=== PATIENT | female | born 1975 | race Caucasian/White ===

== ENCOUNTER → 2016-12-22 | Outpatient (CLI) | payer BC ==
[~2016-12-22] MED LIST: IBUP600T44 PO; PRENTAB26
== END | disposition home or self-care (01) ==
LOC: C.LABSPEC 17:43
PROVIDERS: ATTEND Nurse Practitioner Family
DX: J02.9 Acute pharyngitis, unspecified (principal)

== ENCOUNTER → 2017-02-03 | Outpatient (CLI) | payer BC ==
[2017-02-03 13:17] LABS: URINE APPEARANCE CLOUDY (CLEAR); URINE BILIRUBIN NEG (NEG); URINE COLOR ORANGE; URINE NITRITE POS (NEG); URINE PH 5.5 (4.5-7.5); URINE SPECIFIC GRAVITY 1.018 (1.000-1.030); UROBILINOGEN NEG (NEG)
[2017-02-03 13:19] LABS: MANUAL MICROSCOPIC REQUIRED? NO; REVIEW REQ? NO
== END | disposition home or self-care (01) ==
LOC: C.LABSPEC 11:05
PROVIDERS: ATTEND Internal Medicine
DX: R39.9 Unspecified symptoms and signs involving the genitourinary system (principal)

== ENCOUNTER → 2017-09-19 | Outpatient (CLI) | payer BC ==
--- NOTE | 2017-09-19 15:20 | MAMMOGRAPHY REPORT ---
BILATERAL DIGITAL SCREENING MAMMOGRAM TOMOSYNTHESIS WITH CAD: 09/19/2017 TECHNIQUE: Breast tomosynthesis in addition to standard 2D mammography was performed. Current study was also evaluated with a Computer Aided Detection (CAD) system. COMPARISON: Comparison is made to exams dated: 09/18/2016 ultrasound, 09/18/2016 mammogram, 5 mammogram, 11/25/2014 mammogram, 05/19/2014 mammogram, and 05/28/2014 mammogram - [facility]. BREAST COMPOSITION: The tissue of both breasts is heterogeneously dense, which may obscure small mas ses. FINDINGS: No suspicious masses, calcifications, or areas of architectural distortion are noted in ei ther breast. There has been no significant interval change compared to prior exams. Scattered bilater al benign-appearing calcifications are not significantly changed. Circumscribed benign-appearing mas ses bilaterally are stable compared to prior exams. IMPRESSION: ACR BI-RADS CATEGORY 2: BENIGN There is no mammographic evidence of malignancy. A 1 year screening mammogram is recommended. The pa tient will receive written notification of the results. Approximately 10% of breast cancers are not detected with mammography. A negative mammographic report should not delay biopsy if a clinically suggestive mass is present. Genny Perez M.D. ah/:09/19/2017 07:55:39 Housing Assistant Property Manager: Katie TORRES(Doroteo)(M), [facility] letter sent: Normal 1/2 BI-RADS Code: ACR BI-RADS Category 2: Benign
== END | disposition home or self-care (01) ==
LOC: C.MAMM 07:37
PROVIDERS: ATTEND Family Medicine
DX: Z12.31 Encounter for screening mammogram for malignant neoplasm of breast (principal)

== ENCOUNTER → 2017-10-05 | Outpatient (CLI) | payer BC ==
[2017-10-05 11:59] LABS: BASO % 0.5 %; BASO ABS # 0.03 K/uL (0-0.2); COMPLETE YES; EOS % 1.7 %; HEMATOCRIT 41.6 % (37-47); IG% 0.3 %; LYMPH % 23.4 %; LYMPH ABS # 1.36 K/uL (1.2-3.4); MEAN CELL VOLUME 93.5 fL (80-100); MEAN CORPUSCULAR HEMOGLOBIN 30.6 pg (25-34); MEAN CORPUSCULAR HGB CONC 32.7 g/dl (32-36); MEAN PLATELET VOLUME 11.1 fL (7.4-10.4); MONO % 9.3 %; NEUT % 64.8 %; PLATELET COUNT 186 K/uL (130-400); RED BLOOD COUNT 4.45 M/uL (4.2-5.4); WHITE BLOOD COUNT 5.81 K/uL (4.8-10.8)
[2017-10-05 12:24] LABS: ALT/SGPT 23 U/L (12-78); AST/SGOT 19 U/L (15-37); BLOOD UREA NITROGEN 17 mg/dl (7-18); BUN/CREATININE RATIO 23.3 (10-20); CALCIUM 8.7 mg/dl (8.5-10.1); CARBON DIOXIDE 28 mmol/L (21-32); CHLORIDE 104 mmol/L (98-107); CREATININE 0.71 mg/dl (0.60-1.20); GLUCOSE 75 mg/dl (70-99); POTASSIUM 3.9 mmol/L (3.5-5.1); SODIUM 139 mmol/L (136-145); TRIGLYCERIDES 49 mg/dl (0-150); VERY LOW DENSITY LIPOPROT CALC 10 mg/dl
[2017-10-05 12:31] LABS: ALKALINE PHOSPHATASE 51 U/L (45-117); CHOLESTEROL 101 mg/dl (0-200); CHOLESTEROL/HDL RATIO 1.7; HDL CHOLESTEROL 58 mg/dl; LDL CHOLESTEROL CALCULATED 33 mg/dl
== END | disposition home or self-care (01) ==
LOC: C.LABPBG 07:50
PROVIDERS: ATTEND Family Medicine
DX: R53.83 Other fatigue (principal); R63.5 Abnormal weight gain; Z13.220 Encounter for screening for lipoid disorders

== ENCOUNTER 2024-12-24 21:38 | Observation (INO) ==
[2024-12-24 23:51] LABS: Albumin Level 4.6 gm/dl (3.4-5.0); Bilirubin,Total 1.2 mg/dl (0.2-1.0); Calcium 9.2 mg/dl (8.6-10.3)
[2024-12-24 23:57] LABS: Albumin Globulin Ratio 1.8 (0.9-2); Creatinine Clr Calc Pharmacy 85.4 ml/min; Globulin 2.6 gm/dl (2.5-4.0); Total Protein 7.2 gm/dl (6.0-8.3)
[2024-12-25] LABS: Basophils # (auto) 0.04 K/uL (0.00-0.20); Basophils % (auto) 0.4 %; Eosinophils # (auto) 0.21 K/uL (0.00-0.50); Eosinophils % (auto) 1.9 %; Hematocrit (blood only) 45.8 % (37.0-47.0); Hemoglobin 15.4 g/dl (12.0-16.0); Immature Granulocytes # (auto) 0.02 K/uL (0.01-0.20); Immature Granulocytes % (auto) 0.2 %; Lymphocytes # (auto) 1.34 K/uL (1.20-3.40); Lymphocytes % (auto) 11.9 %; Mean Corpuscular Hemoglobin 30.4 pg (25.0-34.0); Mean Corpuscular Hgb Conc 33.6 g/dL (32.0-36.0); Mean Corpuscular Volume 90.5 fL (80.0-100.0); Mean Platelet Volume 10.9 fL (9.4-12.4); Monocytes # (auto) 0.66 K/uL (0.11-0.59); Monocytes % (auto) 5.9 %; Neutrophils # (auto) 8.97 K/uL (1.40-6.50); Neutrophils % (auto) 79.7 %; Platelet Count 217 K/uL (130-400); RDW Coefficient of Variation 12.3 % (11.5-14.5); RDW Standard Deviation 40.2 fL (36.4-46.3); Red Blood Count 5.06 M/uL (4.20-5.40); White Blood Count 11.24 K/ul (4.8-10.8)
[2024-12-25 00:02] LABS: Troponin I High Sensitivity 4.8 pg/ml (0-14)
[2024-12-25 00:11] LABS: D Dimer < 190 ug/L FEU (0-500)
--- NOTE | 2024-12-25 01:01 | History & Physical Report ---
Date of Service December 25, 2024 Assessment & Plan (1) Hypotension: Plan: etiology of patient's hypotension is unclear. She is undergoing outpatient workup for this. Recently had cortisol, aldosterone and renin activity send which all were within normal limits. LR x 1 L Compression stockings Consider treatment with midodrine (2) Chest pain: Plan: do not feel that patient's episode of chest pain represents ACS or other acute cardiac episode. She has an EKG with no acute ischemic changes. Troponin x 2 is unremarkable. She is low risk on heart score for having underlying cardiac d isease. -Check 2D echo. Patient was slated to have this performed next week Plan depression: Continue fluoxetine F/E/N -encourage p.o. intake, monitor electrolytes, regular diet History of Present Illness Chief Complaint: Hypotension Primary Care Provider: Maria Isabel Fu DO Shahnaz Hartman Is a 39-year-old female with history of depression presenting with episode of chest pain as well as symptomatic hypotension. Patient has been dealing with drops in her blood pressure since November of this year. She has been following with her PCP for this issue. She was previously on spironolactone which has since been discontinued. Patient monitors her blood pressure at home and ranges from upper 70s to 110s systolic. She has had several episodes where she drops her pressures to 70 over 40 mg acutely dizzy. Today she experienced an episode of substernal chest tightness with diaphoresis, lightheadedness, near syncope. This lasted several minutes and resolved on its own. Allergies Allergy/AdvReac Type Severity Reaction Status Date / Time No Known Drug Allergies Allergy Verified 12/12/24 11:09 Home Medications Medication Instructions Recorded Confirmed Type clobetasol 0.05 % topical cream 1 applic topical .COMPLEX #30 grams 05/02/24 12/25/24 Rx fluoxetine 10 mg capsule 10 mg PO DAILY #90 caps 10/16/24 12/25/24 Rx clindamycin phosphate 1 % topical 1 applic topical DAILY PRN acne 11/04/24 12/25/24 Rx gel #60 grams multivitamin (Daily Multi-Vitamin 1 tab PO DAILY 11/26/24 12/25/24 History tablet) Past Med/Surg History Problem List (Updated 12/25/24 @ 05:06 by Marlene Benítez DO) Chest pain Hypotension Dyspepsia Venous insufficiency (Acute) Sensorineural hearing loss (SNHL) of both ears Hemorrhoids (Acute) Depression with anxiety Acne vulgaris (Acute) Medical History History of COVID-19 08/21/22>RESOLVED Surgical History History of section X 2 Tsaile teeth removed S/P ASA/PRK (advanced surface ablation photorefractive keratectomy) Hx of tubal ligation S/P fine needle aspiration breast x2 left Family History Grandmother (Maternal) Thyroid cancer Breast cancer, Onset Age: 50 Congestive heart failure Father History of hyperlipidemia Hypertension Mother Hypertension Aunt Ovarian cancer, Onset Age: 60 maternal Uterine cancer maternal Other No family history of adverse response to anesthesia Denies family history of FHx: allergies Colon cancer Prostate cancer FH: deafness or hearing loss Clotting disorder Cardiac disorder Myocardial infarction Adverse anesthesia outcome Sinusitis Bleeding disorder Colorectal cancer Stroke Asthma Social History Smoking Status: Never smoker Second Hand Exposure: Yes ( A CHILD); Do You Dip or Chew Tobacco: No; Hx Alcohol Use: Yes Alcohol Intake Frequency: Monthly or Less Alcohol Intake Frequency Comment: vey rare Hx Substance Use: No Preferred Language: Lao Communication Ability: Effective Visual Impairment: No Limitations Hearing Ability: Hard of Hearing Anvilsmith Required: No Beliefs That Will Affect Care: None marital status: Current Living Situation: Spouse current occupational status: employed 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 How many Children do You have: 2 Other Information That Helps Us Care for You: No Feels Safe at Home: Yes Safety Concerns: Feels Safe At This Time Childhood Exposure to Second-Hand Smoke: Yes (mom and dad) Diet: regular Diet Comment: regular caffeine: Yes during the past year weight has: remained stable Dental Care, Regularly: Yes Physical Activity Frequency: Daily Seatbelt Use: always Sunscreen Use: Yes Assistive Devices: None Review of Systems Review of Systems: All systems reviewed & are unremarkable except as noted in HPI & below Physical Exam Physical Exam: General: patient resting comfortably, NAD, non-toxic in appearance, AA&O x 4 Skin: warm, dry, intact, no rashes or lesions HEENT: NC/AT, PERRL, EOMI, anicteric sclera, conjunctiva without injection, external ear normal to inspection and nontender, nares patent, moist mucus membranes, dentition intact, no oropharyngeal lesions, neck supple, trachea midline, no LAD, no thyromegaly, no JVD Heart: +S1/S2, regular, no m/r/g Lungs: equal air entry bilaterally, no rales/rhonchi/wheezes Abd: +BS, soft, NT/ND, no masses/organomegaly/ascites Ext: warm, 2+ pulses in UE/LE bilaterally, no clubbing/cyanosis or edema Neuro: nonfocal, patient AA&O x 4, speech intact, no facial droop, moving all extremities on command with equal strength 5/5 Orthostatic vital signs: Layin/64 65bpm Sittin/70 70bpm. Standin/75 68 bpm Results & Data Results & Data Vital Signs (Past 12 Hours) Vital Signs Temp Pulse Pulse Resp BP BP Pulse Ox 12/24/24 23:25 66 18 98 12/24/24 22:30 74 18 107/66 97 12/24/24 21:56 81 12/24/24 21:42 36.2 C L 72 16 124/81 97 12/24/24 21:39 O2 Del Method 12/24/24 23:25 Room Air 12/24/24 22:30 Room Air 12/24/24 21:56 12/24/24 21:42 Room Air 12/24/24 21:39 Room Air Laboratory Results Laboratory Results WBC 11.24 K/ul (4.8-10.8) H 12/24/24 21:51 RBC 5.06 M/uL (4.20-5.40) 12/24/24 21:51 Hgb 15.4 g/dl (12.0-16.0) 12/24/24 21:51 Hct 45.8 % (37.0-47.0) 12/24/24 21:51 MCV 90.5 fL (80.0-100.0) 12/24/24 21:51 MCH 30.4 pg (25.0-34.0) 12/24/24 21:51 MCHC 33.6 g/dL (32.0-36.0) 12/24/24 21:51 RDW Std Deviation 40.2 fL (36.4-46.3) 12/24/24 21:51 RDW Coeff of Robyn 12.3 % (11.5-14.5) 12/24/24 21:51 Plt Count 217 K/uL (130-400) 12/24/24 21:51 MPV 10.9 fL (9.4-12.4) 12/24/24 21:51 Immature Gran % (Auto) 0.2 % 12/24/24 21:51 Neut % (Auto) 79.7 % 12/24/24 21:51 Lymph % (Auto) 11.9 % 12/24/24 21:51 Nicollet % (Auto) 5.9 % 12/24/24 21:51 Eos % (Auto) 1.9 % 12/24/24 21:51 Baso % (Auto) 0.4 % 12/24/24 21:51 Neut # (Auto) 8.97 K/uL (1.40-6.50) H 12/24/24 21:51 Lymph # (Auto) 1.34 K/uL (1.20-3.40) 12/24/24 21:51 Nicollet # (Auto) 0.66 K/uL (0.11-0.59) H 12/24/24 21:51 Eos # (Auto) 0.21 K/uL (0.00-0.50) 12/24/24 21:51 Baso # (Auto) 0.04 K/uL (0.00-0.20) 12/24/24 21:51 Immature Gran # (Auto) 0.02 K/uL (0.01-0.20) 12/24/24 21:51 D-Dimer < 190 ug/L FEU (0-500) 12/24/24 21:51 Sodium 136 mmol/L (136-145) 12/24/24 21:51 Potassium 4.0 mmol/L (3.5-5.1) 12/24/24 21:51 Chloride 102 mmol/L (98-107) 12/24/24 21:51 Carbon Dioxide 27 mmol/L (21-32) 12/24/24 21:51 Anion Gap 7 (3-11) 12/24/24 21:51 BUN 24 mg/dl (6-23) H 12/24/24 21:51 Creatinine 0.80 mg/dl (0.6-1.2) 12/24/24 21:51 Est Cr Clr Drug Dosing 85.4 ml/min 12/24/24 21:51 eGFR 91.40 12/24/24 21:51 BUN/Creatinine Ratio 30.0 (10-20) H 12/24/24 21:51 Glucose 101 mg/dl (70-99(Fasting)) H 12/24/24 21:51 Calcium 9.2 mg/dl (8.6-10.3) 12/24/24 21:51 Magnesium 1.9 mg/dl (1.7-2.4) 12/24/24 21:51 Total Bilirubin 1.2 mg/dl (0.2-1.0) H 12/24/24 21:51 AST 32 U/L (13-39) 12/24/24 21:51 ALT 21 U/L (7-52) 12/24/24 21:51 Alkaline Phosphatase 43 U/L (34-104) 12/24/24 21:51 Troponin I High Sens < 2.3 pg/ml (0-14) 12/25/24 03:50 Total Protein 7.2 gm/dl (6.0-8.3) 12/24/24 21:51 Albumin 4.6 gm/dl (3.4-5.0) 12/24/24 21:51 Globulin 2.6 gm/dl (2.5-4.0) 12/24/24 21:51 Albumin/Globulin Ratio 1.8 (0.9-2) 12/24/24 21:51 Lipase 12 U/L (11-82) 12/24/24 21:51 TSH 3.222 uIu/ml (0.300-4.500) 12/24/24 21:51 Impressions Chest X-Ray 12/24/24 23:25 EXAM: XR chest 1V portable CLINICAL HISTORY: Chest pain, nonspecific TECHNIQUE: An X-ray image of the chest is obtained in AP projection. COMPARISON: No prior studies are available for comparison. FINDINGS: Pulmonary Parenchyma: Lungs are clear bilaterally. No evidence of consolidation, collapse, or focal opacities. No pulmonary nodules are identified. No evidence of pleural effusion or pleural thickening. Heart and Mediastinum: Heart size and shape are normal. No mediastinal widening or masses. No hilar or mediastinal lymphadenopathy. Bony Thorax: The bony thorax appears intact without fractures or deformities. Soft Tissues: Soft tissues overlying the chest wall are unremarkable. IMPRESSION: No acute cardiopulmonary abnormalities are identified. Electronically signed by Paresh Castillo 12-25-2024 01:25 AM ECG Additional Comments: No acute ischemic changes PG Care Time/CCT Total # of Minutes Spent Total Time Spent with Patient: Total time spent is greater than 50% in coordination of care (as documented) at patient's floor/unit and/or counseling patient: Coding Level of Care Code 94589 INT INP/OBS CARE 2/55MIN Diagnoses Hypotension I95.9 Chest pain R07.9
--- NOTE | 2024-12-25 01:25 | XRay Report ---
EXAM: XR chest 1V portable CLINICAL HISTORY: Chest pain, nonspecific TECHNIQUE: An X-ray image of the chest is obtained in AP projection. COMPARISON: No prior studies are available for comparison. FINDINGS: Pulmonary Parenchyma: Lungs are clear bilaterally. No evidence of consolidation, collapse, or focal opacities. No pulmonary nodules are identified. No evidence of pleural effusion or pleural thickening. Heart and Mediastinum: Heart size and shape are normal. No mediastinal widening or masses. No hilar or mediastinal lymphadenopathy. Bony Thorax: The bony thorax appears intact without fractures or deformities. Soft Tissues: Soft tissues overlying the chest wall are unremarkable. IMPRESSION: No acute cardiopulmonary abnormalities are identified. Electronically signed by Paresh Castillo 12-25-2024 01:25 AM
[2024-12-25] MEDS: LACTATED RINGER'S 1,000 ML IV ONE (01:36)
[2024-12-25 01:41] LABS: Magnesium 1.9 mg/dl (1.7-2.4)
[2024-12-25 02:09] LABS: Thyroid Stimulating Hormone 3.222 uIu/ml (0.300-4.500)
[2024-12-25] MEDS ORDERED: ONDANSETRON INJ 2 MG/ML 2 ML VIAL IV PRN (02:18)
--- OUTSIDE RECORDS SUMMARY | 2024-12-25 04:40 | External Medical Summary | Summary of Care ---
Author Name Unknown Organization [facility] Address [address] [place] [address] Phone [phone] Care Team Providers Care Dominatrix Name Role Phone Maria Isabel Fu DO Primary Care Provider [phone] Reason for Visit * Reason Comments NEW PATIENT Patient here for acn e she had been treating with spironolactone until her blood pressure started went too low. She has been off for 2 weeks. PCP does not want her to go back on the medication. She uses topicals. She did flare when first off the pills, not real bad now but would like to discuss alternate treatment. Encounter Details Date Type Department Care Team (Late st Contact Info) Description 12/12/2024 2:00 PM EST Office Visit Dermatology [facility] [address] [place] [address] Zane Garcia MD [address] [place] [id number] Other acne* Allergies No known active allergiesdocumented as of this encounter (statuses as of 12/12/2024) Medications FLUoxetine HCl (PROZAC) 40 MG Capsule Take 40 mg by mouth daily. Active MultiVitamin + Fluoride 0.25 MG Oral Tablet Chewable 1 Tablet. 2 Active Clindamycin Phosphate 1 % External Gel use on face nightly 30 g 1 4 Active Adapalene 0.3 % External Gel (Differin) Apply to night to acne prone areas. 45 g 1 5 Active Spironolactone 50 MG Oral Tablet (Aldactone)Ind ications:Adult acne TAKE 1 TABLET DAILY WITH FOOD 90 Tablet 3 4 12/12/19 25 Discontinued documented as of this encounter (statuses as of 12/12/2024) Active Problems No known active problems documented as of this encounter (statuses as of 12/12/2024) Social History Tobacco Use Types Packs/Day Years Used Date Smoking Tobacco: Never Smokeless Tobacco: Never Alcohol Use Standard Drinks/Week Comments Yes 0 (1 standard drink = 0.6 oz pur e alcohol) Utilities Answer Date Recorded Do you have trouble paying y our heating, water, or electric bill? (Adult - for ages 18 years and over) Not on file 04/22/2024 Is your family able to pay t he heat, water, or electric bill? (Household - for ages 0-17 years) Not on file 04/22/2024 Does your family have access to good internet? (Household - for ages 0-17 years) Not on file 04/22/2024 Social Connections Answer Date Recorded How often do you feel lonely or isolated from those around you? (Adult - for ages 18 years and over) Not on file 04/22/2024 Comments Unknown Sex and Gender Information Value Date Recorded Sex Assigned at Not on file Legal Sex Female 5:27 AM EST Gender Identity Not on file Sexual Orientation Not on file documented as of this encounter Progress Notes * Zane Garcia MD - 12/12/2024 2:14 PM EST VanesaShaina Hartman is a 49 year old female here for follow up. Acne flaring now that she is off of spironolactone d/t low blood pressure. 77/58 - now up into 90s. Was very lightheaded, better now. Cameoff two weeks ago. Just using differin and clindamycin. Other skin problems today: no Current Outpatient Medications Medication Sig Dispense Refill FLUoxetine HCl (PROZAC) 40 MG Capsule Take 40 mg by mouth daily. MultiVitamin + Fluoride 0.25 MG Oral Tablet Chewable 1 Tablet. Clindamycin Phosphate 1 % External Gel use on face nightly 30 g 1 No current facility-administered medications for this visit. O. Well-developed female type 2 skin, no acute distress, alert and oriented face examined and normal except rare resolving inflam papules on cheeks, forehead Assessment: / Plan: 1. Acne/rosacea Flared with d/c of spironolactone Has been on many tx in the past We discussed holding (as she is currently doing ok), adding doxy, increasing str of retinoid, or adding benzoyl peroxide - and she opted for increasing differin - if too drying use every other night Follow up: February as scheduled Zane Garcia MD 12/12/2024 2:14 PM documented in this encounter Nursing Notes * Mary Paniagua LPN - 12/12/2024 1:51 PM EST Chief Complaint Patient presents with NEW PATIENT Patient here for acne she had been treating with spironolactone until her blood pressure started went too low. She has been off for 2 weeks. PCP does not want her to go back on the medication. She uses topicals. She did flare when first off the pills, not real bad now but would like to discuss alternate treatment. documented in this encounter Plan of Treatment Upcoming Encounters Date Type Department Care Team (Late st Contact Info) Description 02/18/2025 1:20 PM EDT Office Visit [facility]atology [facility] [address] [place] [address] Fang Maya PA-C [address] [phone] Health Maintenance Due Date Last Done Comments Lipid Panel 1977 Depression Screening 1989 HIV Screening 1992 Hepatitis C Screening 1995 DTap/Tdap Vaccines (1 - Tdap) 1996 Hepatitis B Vaccine (1 of 3 - 19+ 3-dose series) 1996 Pap Smear 1998 Cervical Cancer Screening 2007 HPV/Co-Test 2007 Mammogram 2017 Cologuard 2022 Colonoscopy 2022 Colorectal Cancer Screening 2022 Fecal Occult Blood Test 2022 Sigmoidoscopy 2022 COVID-19 Vaccine ( season) 2024 10/18/2021, 10/08/2021, 03/03/2021, Additional history exists Influenza Vaccine (FLU shot) (#1) 2024 HPV (Gardasil) Vaccine Aged Out No lo nger eligible based on patient's age to complete this topic MENINGOCOCCAL (MENACTRA/MENVEO) Aged Out No longer eligible based on patient's age to complete this topic Pneumococcal Vaccine: Pediatrics (0 to 5 Years) and At-Risk Patients (6 to 18 Years and 19+ Years) Aged Out No longer eligib le based on patient's age to complete this topic documented as of this encounter Medical Devices Not on filedocumented as of this encounter Visit Diagnoses Diagnosis Other acne- Primary documented in this encounter Care Teams Dominatrix Relationship Specialty Start Date End Date Maria Isabel Fu DO [address] [facility] [address] [place] [address] PCP - General Family Medicine 10/20/15 documented as of this encounter
--- NOTE | 2024-12-25 06:34 | Emergency Department Note ---
Impression & Plan Chest tightness, Acute hypotension admit to the [facility] ED Provider Note NAME: DEMETRIUS LOPEZ AGE: 49 SEX: Female INFORMANT: Patient ED PROVIDER(S): Humaira Pacheco DO CHIEF COMPLAINT: chest tightness and hypotension PLAN: Disposition: admit to the [facility] MEDICAL DECISION MAKING: This is a 49-year-old female patient who presents to the emergency department with recurrent episodes of hypotension. Over the past 1 month, the patient continues to have episodes where her systolic blood pressure will suddenly drop into the 70s and 80s. This can be at rest or with activity. Earlier today, the patient developed an episode of chest tightness/pressure followed by 1 of these episodes where she became lightheaded and diaphoretic. She describes going down to the floor on all fours. She then became quite fatigued and had to lay down. She thought this may be GI related and tried taking some Tums but got no relief. Tonight, she was watching TV when she had another episode of dizziness/lightheadedness and felt as if her blood pressure was dropping. Her checked the blood pressure and found it to be in the 80s systolically and she again went to the floor. The blood pressure remained low and the brought her here for evaluation. She has seen her PCP for these episodes. They took her off of her spironolactone which she had been on for years for acne. The patient is scheduled to have an echocardiogram in January of this year. This was the first time the patient had associated chest pain/pressure/tightness with an episode.. Laboratory studies revealed a white blood cell count of 11.2. H&H were stable. D-dimer was normal. BUN was elevated at 24. Creatinine was normal. BUN/creatinine ratio was elevated at 30. Glucose was 101. Troponin was negative. Total bilirubin was 1.2. the patient remained asymptomatic here in the emergency department. EKG was unremarkable. I was concerned about the patient's description of symptoms and sudden onset of hypotensive episodes over the past month after having had normal blood pressure for years. I am also concerned about this episode of associated chest discomfort. [facility] for further inpatient care and cardiology workup. Triage Nursing notes: reviewed and agree them. Vital Signs: reviewed and remarkable for Hypotension Additional History obtained from: who is at the bedside Differential Diagnosis: adrenal abnormality, renal abnormality, cardiac abnormality, Diagnostics, independently interpreted by me: ECG: normal sinus rhythm at a rate of [address] segment elevation or signs of ischemia. There is no ectopy. QTc was 418 ms Cardiac Monitoring: normal sinus rhythm at 73. Imaging studies: Portable chest x-ray: No acute pulmonary infiltrates or consolidation as per my independent interpretation HPI: 49 year old Female arrives for evaluation of chest tightness and low blood pressure. Over the past 1 month, the patient continues to have episodes where her systolic blood pressure will suddenly drop into the 70s and 80s. This can be at rest or with activity. Earlier today, the patient developed an episode of chest tightness/pressure followed by 1 of these episodes where she became lightheaded and diaphoretic. She describes going down to the floor on all fours. She then became quite fatigued and had to lay down. She thought this may be GI related and tried taking some Tums but got no relief. Tonight, she was watching TV when she had another episode of dizziness/lightheadedness and felt as if her blood pressure was dropping. Her checked the blood pressure and found it to be in the 80s systolically and she again went to the floor. The blood pressure remained low and the brought her here for evaluation. She has seen her PCP for these episodes. They took her off of her spironolactone which she had been on for years for acne. The patient is scheduled to have an echocardiogram in January of this year. This was the first time the patient had associated chest pain/pressure/tightness with an episode. PAST MEDICAL HISTORY: See Below, PAST SURGICAL HISTORY: See Below, SOCIAL HISTORY: See Below, HOME MEDICATIONS: see list ALLERGIES: none VITALS: See Below PHYSICAL EXAMINATION: HEENT: Head - normocephalic and atraumatic. Pupils are equal, round, and reactive to light. Extraocular eye muscles are intact, and sclera are anicteric. Nose - moist nasal mucosa without discharge. Mouth - moist buccal mucosa. Oropharynx is nonerythematous and there is no tonsillar exudate or edema noted. Neck: Supple; no JVD, nuchal rigidity, cervical lymphadenopathy, or auscultated bruits. Heart: Regular rate and rhythm. There is a normal S1 and S2 with no murmurs, clicks, or gallops appreciated. Lungs: Clear to auscultation bilaterally with no wheezes, rales, or rhonchi. Abdomen: Soft, completely nontender, nondistended, with good bowel sounds. There are no palpable pulsatile masses or hepatosplenomegaly. There is no guarding, rigidity, or rebound noted. Extremities: No evidence of cyanosis, clubbing, or edema. There are easily palpable peripheral pulses. Skin: warm and dry with good turgor and no rashes. Emergency Department course: The patient was evaluated in room A-10. A complete history and physical was performed. An order was placed for continuous cardiac monitoring. The patient was in a normal sinus rhythm at a rate of 73. A twelve-lead EKG was obtained as described above. A portable chest x-ray was performed. Patient's blood pressure remained stable. There were no signs of orthostasis. She had no recurrent chest discomfort. I reviewed laboratory studies with the patient and her . I discussed the case with the [facility] Hospitalist and they will evaluate for further inpatient care. Past Med/Surg History Problem List (Updated 12/25/24 @ 12:38 by Darien Dorsey MD) Depression Acute hypotension (Acute) Chest tightness (Acute) Chest pain Hypotension Dyspepsia Venous insufficiency (Acute) Sensorineural hearing loss (SNHL) of both ears Hemorrhoids (Acute) Depression with anxiety Acne vulgaris (Acute) Medical History History of COVID-19 08/21/22>RESOLVED Surgical History History of section X 2 Rogers teeth removed S/P ASA/PRK (advanced surface ablation photorefractive keratectomy) Hx of tubal ligation S/P fine needle aspiration breast x2 left Family History Grandmother (Maternal) Thyroid cancer Breast cancer, Onset Age: 50 Congestive heart failure Father History of hyperlipidemia Hypertension Mother Hypertension Aunt Ovarian cancer, Onset Age: 60 maternal Uterine cancer maternal Other No family history of adverse response to anesthesia Denies family history of FHx: allergies Colon cancer Prostate cancer FH: deafness or hearing loss Clotting disorder Cardiac disorder Myocardial infarction Adverse anesthesia outcome Sinusitis Bleeding disorder Colorectal cancer Stroke Asthma Social History Smoking Status: Never smoker Second Hand Exposure: Yes ( A CHILD); Do You Dip or Chew Tobacco: No; Hx Alcohol Use: Yes Alcohol Intake Frequency: Monthly or Less Alcohol Intake Frequency Comment: vey rare Hx Substance Use: No Preferred Language: [place] Communication Ability: Effective Visual Impairment: No Limitations Hearing Ability: Hard of Hearing Global Chief Creative Officer Required: No Beliefs That Will Affect Care: None marital status: Current Living Situation: Spouse current occupational status: employed current occupation: [employer]ist How many Children do You have: 2 Feels Safe at Home: Yes Childhood Exposure to Second-Hand Smoke: Yes (mom and dad) Diet: regular Diet Comment: regular caffeine: Yes during the past year weight has: remained stable Dental Care, Regularly: Yes Physical Activity Frequency: Daily Seatbelt Use: always Sunscreen Use: Yes Assistive Devices: None Allergies Allergies Allergy/AdvReac Type Severity Reaction Status Date / Time No Known Drug Allergies Allergy Verified 12/12/24 11:09 Home Meds Home Medications Medication Instructions Recorded Confirmed multivitamin (Daily Multi-Vitamin 1 tab PO DAILY 11/26/24 12/25/24 tablet) Previous Rx's Medication Instructions Recorded clobetasol 0.05 % topical cream 1 applic topical .COMPLEX #30 grams 05/02/24 fluoxetine 10 mg capsule 10 mg PO DAILY #90 caps 10/16/24 clindamycin phosphate 1 % topical 1 applic topical DAILY PRN acne 11/04/24 gel #60 grams Results & Data (ED) Vital Signs Vital Signs - 24 hr 12/24/24 21:39 12/24/24 21:42 12/24/24 21:56 Temperature 36.2 C L Temperature Source Temporal Artery Scan Pulse Rate 72 81 Pulse Rate [Apical] Pulse Rhythm Respiratory Rate 16 Respiratory Effort / Characteristics Respiratory Depth Respiratory Pattern Blood Pressure 124/81 Blood Pressure [Right Arm] Blood Pressure Mean 95 Blood Pressure Mean [Right Arm] Blood Pressure Position [Right Arm] Pulse Oximetry 97 Oxygen Delivery Method Room Air Room Air Sepsis Recent Fever Within 48 Hours No Sepsis New/Unexplained Change in Mental Status No Sepsis Action Taken by Nursing No Action Required 12/24/24 22:30 12/24/24 23:25 12/25/24 00:00 Temperature Temperature Source Pulse Rate 66 Pulse Rate [Apical] 74 87 Pulse Rhythm Regular Respiratory Rate 18 18 17 Respiratory Effort / Characteristics Non-Labored Spontaneous Respiratory Depth Normal Respiratory Pattern Regular Blood Pressure Blood Pressure [Right Arm] 107/66 112/84 Blood Pressure Mean Blood Pressure Mean [Right Arm] 79 93 Blood Pressure Position [Right Arm] Lying Pulse Oximetry 97 98 98 Oxygen Delivery Method Room Air Room Air Sepsis Recent Fever Within 48 Hours Sepsis New/Unexplained Change in Mental Status Sepsis Action Taken by Nursing Laboratory Data 12/24/24 21:51 12/24/24 21:51 Lab Results 12/24/24 Range/Units 21:51 WBC 11.24 H (4.8-10.8) K/ul RBC 5.06 (4.20-5.40) M/uL Hgb 15.4 (12.0-16.0) g/dl Hct 45.8 (37.0-47.0) % MCV 90.5 (80.0-100.0) fL MCH 30.4 (25.0-34.0) pg MCHC 33.6 (32.0-36.0) g/dL RDW Std Deviation 40.2 (36.4-46.3) fL RDW Coeff of Robyn 12.3 (11.5-14.5) % Plt Count 217 (130-400) K/uL MPV 10.9 (9.4-12.4) fL Immature Gran % (Auto) 0.2 % Neut % (Auto) 79.7 % Lymph % (Auto) 11.9 % Juncos % (Auto) 5.9 % Eos % (Auto) 1.9 % Baso % (Auto) 0.4 % Neut # (Auto) 8.97 H (1.40-6.50) K/uL Lymph # (Auto) 1.34 (1.20-3.40) K/uL Juncos # (Auto) 0.66 H (0.11-0.59) K/uL Eos # (Auto) 0.21 (0.00-0.50) K/uL Baso # (Auto) 0.04 (0.00-0.20) K/uL Immature Gran # (Auto) 0.02 (0.01-0.20) K/uL D-Dimer < 190 (0-500) ug/L FEU Sodium 136 (136-145) mmol/L Potassium 4.0 (3.5-5.1) mmol/L Chloride 102 (98-107) mmol/L Carbon Dioxide 27 (21-32) mmol/L Anion Gap 7 (3-11) BUN 24 H (6-23) mg/dl Creatinine 0.80 (0.6-1.2) mg/dl Est Cr Clr Drug Dosing 85.4 ml/min eGFR 91.40 BUN/Creatinine Ratio 30.0 H (10-20) Glucose 101 H (70-99(Fasting)) mg/dl Calcium 9.2 (8.6-10.3) mg/dl Magnesium 1.9 (1.7-2.4) mg/dl Total Bilirubin 1.2 H (0.2-1.0) mg/dl AST 32 (13-39) U/L ALT 21 (7-52) U/L Alkaline Phosphatase 43 (34-104) U/L Troponin I High Sens 4.8 (0-14) pg/ml Total Protein 7.2 (6.0-8.3) gm/dl Albumin 4.6 (3.4-5.0) gm/dl Globulin 2.6 (2.5-4.0) gm/dl Albumin/Globulin Ratio 1.8 (0.9-2) Lipase 12 (11-82) U/L TSH 3.222 (0.300-4.500) uIu/ml Administered Medications Acetaminophen (Acetaminophen 325 Mg Tab) 650 mg PO Q4H PRN PRN Reason: Pain or Fever Stop: 01/24/25 02:17 Last Admin: 12/25/24 14:25 Dose: 650 mg Documented By: Admin: 12/25/24 08:33 Dose: 650 mg Documented By: RADHA Fluoxetine HCl (Fluoxetine Hcl 10 Mg Cap) 10 mg PO DAILY [facility] Stop: 01/24/25 08:59 Last Admin: 12/25/24 08:31 Dose: 10 mg Documented By: RADHA Midodrine (Midodrine Hcl 2.5 Mg Tab) 5 mg PO TID@0800,1200,1700 [facility] Stop: 01/24/25 07:59 Last Admin: 12/25/24 11:46 Dose: 5 mg Documented By: Admin: 12/25/24 09:24 Dose: 5 mg Documented By: RADHA Discontinued Medications Lactated Ringer's (Lr) 1,000 mls @ 999 mls/hr IV .Q1H1M ONE Stop: 12/25/24 01:33 Last Infusion: 12/25/24 02:48 Dose: Infused Documented By: Admin: 12/25/24 01:36 Dose: 999 mls/hr Documented By: TAQUERIA Imaging Data Radiologist's Impression: Chest X-Ray 12/24/24 23:25 EXAM: XR chest 1V portable CLINICAL HISTORY: Chest pain, nonspecific TECHNIQUE: An X-ray image of the chest is obtained in AP projection. COMPARISON: No prior studies are available for comparison. FINDINGS: Pulmonary Parenchyma: Lungs are clear bilaterally. No evidence of consolidation, collapse, or focal opacities. No pulmonary nodules are identified. No evidence of pleural effusion or pleural thickening. Heart and Mediastinum: Heart size and shape are normal. No mediastinal widening or masses. No hilar or mediastinal lymphadenopathy. Bony Thorax: The bony thorax appears intact without fractures or deformities. Soft Tissues: Soft tissues overlying the chest wall are unremarkable. IMPRESSION: No acute cardiopulmonary abnormalities are identified. Electronically signed by Paresh Castillo 12-25-2024 01:25 AM Discharge Plan Visit Data Chief Complaint: Hypotension Stated Complaint: LOW BLOOD PRESSURE, CHEST TIGHTNESS ED Provider: Humaira Pacheco Discharge Problem: Chest tightness, Acute hypotension Patient Disposition: Admitted As Inpatient Discharge Instructions Interventions: ED Discharge Assessment Last Done: 12/25/24 02:18
[2024-12-25] MEDS: FLUoxetine HCL 10 MG CAP PO SCH (08:31)
[2024-12-25] MEDS: ACETAMINOPHEN 325 MG TAB PO PRN (08:33)
[2024-12-25] MEDS: MIDODRINE HCL 2.5 MG TAB PO SCH (09:24)
--- NOTE | 2024-12-25 12:39 | Hospitalist Progress Note ---
Date of Service December 25, 2024 Assessment & Plan (1) Hypotension: Plan: Systolic pressures running between 90 and 100. This is unusually low for her. She does not appear to be septic and has no fever. Midodrine has been started. This could be a side effect of the COVID-vaccine and boosters which she has had multiple injections. (2) Chest pain: Plan: Resolved. No acute EKG changes. Cardiac echo report is pending. Troponin series negative. (3) Depression: Plan: Stable. Continue current medical management Plan Hopeful discharge to home tomorrow, December 26 Admission and Anticipated Discharge Date Admission Date: December 25, 2024 Subjective Alert and oriented. No complaints. Cardiac echo report is pending. Systolic blood pressures running between 90 and 100. Midodrine has been started. No acute EKG changes and chest x-ray is unremarkable. Troponin enzymes negative. Chest discomfort which occurred transiently on admission has now resolved. No evidence of acute coronary syndrome. Hopefully she can go home tomorrow, December 26 Review of Systems 2 Review of Systems: Constitutionalno fever or chills ENTno blurred vision, no double vision, no epistaxis, no sore throat Respiratoryno cough, no wheezing, no shortness of breath Cardiacno palpitations, no syncope. Chest discomfort that occurred transiently on admission has now resolved Iveth nausea, vomiting, diarrhea, melena, hematochezia GUno urinary retention, no urinary incontinence, no dysuria, no hematuria Musculoskeletalno joint pain, no muscle tenderness Skinno bruising, no rashes, no pruritus Neurono isolated weakness, no paresthesia, no weakness Psychno depression, no anxiety Physical Exam 2 Physical Exam: General-alert and oriented x3, no fever, no chills HEENT-head atraumatic and normocephalic, pupils equal and reactive to light, extraocular muscles intact Neck-no lymphadenopathy or thyromegaly, trachea midline Chest-clear to auscultation. No rales, wheezing or rhonchi Cardiac-regular rate and rhythm, normal S1 and S2 Abdomen-normal bowel sounds, no hepatosplenomegaly Extremities-no cyanosis, clubbing, or edema Neuro-cranial nerves II through XII intact, motor and sensory function within normal limits, strength symmetrical, no focal deficits Psych-normal affect, normal mood Results & Data Results & Data Vital Signs (Past 12 Hours) Vital Signs Temp Pulse Pulse Pulse Resp BP Pulse Ox 12/25/24 11:45 36.6 C 70 20 99/64 L 97 12/25/24 07:55 36.4 C L 69 16 106/70 98 12/25/24 04:38 73 17 97/63 L 93 12/25/24 04:04 71 17 93/64 L 98 12/25/24 04:00 70 17 93/64 L 94 12/25/24 02:00 65 130/65 97 12/25/24 01:52 77 O2 Del Method 12/25/24 11:45 Room Air 12/25/24 07:55 Room Air 12/25/24 04:38 Room Air 12/25/24 04:04 Room Air 12/25/24 04:00 Room Air 12/25/24 02:00 Room Air 12/25/24 01:52 Laboratory Results 12/24/24 21:51 12/24/24 21:51 PG Care Time/CCT Total # of Minutes Spent Total Time Spent with Patient: Total time spent is greater than 50% in coordination of care (as documented) at patient's floor/unit and/or counseling patient: Coding Level of Care Code 33647 SUB INP/OBS CARE 3/50MIN Diagnoses Hypotension I95.9 Chest pain R07.9 Depression F32.A
--- NOTE | 2024-12-25 14:53 | XCELERA ---
[id number] [id number]
--- NOTE | 2024-12-25 15:51 | Electrocardiogram Report ---
Test Reason : Blood Pressure : */* mmHG Vent. Rate : 68 BPM Atrial Rate : 68 BPM P-R Int : 134 ms QRS Dur : 78 ms QT Int : 394 ms P-R-T Axes : 47 29 21 degrees QTcB Int : 418 ms Normal sinus rhythm Nonspecific ST abnormality No previous ECGs available Confirmed by Benedict Giles ([id number]) on 12/25/2024 3:50:53 PM Referred By: REFERRED SELF Confirmed By: Benedict Giles
[2024-12-25] MEDS ORDERED: traMADol HCL 50 MG TABLET PO PRN (16:57)
[2024-12-25] MEDS: traMADol HCL 50 MG TABLET PO STA (17:14)
[2024-12-26 02:26] VITALS: RESP 16
[2024-12-26] MEDS: MIDODRINE HCL 2.5 MG TAB PO SCH (11:29)
[2024-12-26 11:33] VITALS: TEMP 97.5; O2SAT 97
[2024-12-26 12:57] LABS: Hematocrit (blood only) 43.5 % (37.0-47.0); Hemoglobin 14.7 g/dl (12.0-16.0); Mean Corpuscular Hemoglobin 30.8 pg (25.0-34.0); Mean Corpuscular Hgb Conc 33.8 g/dL (32.0-36.0); Mean Platelet Volume 10.4 fL (9.4-12.4); Platelet Count 218 K/uL (130-400); RDW Coefficient of Variation 11.9 % (11.5-14.5); RDW Standard Deviation 39.8 fL (36.4-46.3); Red Blood Count 4.78 M/uL (4.20-5.40); White Blood Count 10.38 K/ul (4.8-10.8)
[2024-12-26 13:14] LABS: BUN Creatinine Ratio 20.3 (10-20); Calcium 9.6 mg/dl (8.6-10.3); Creatinine Clr Calc Pharmacy 106.8 ml/min; Potassium 3.9 mmol/L (3.5-5.1)
--- NOTE | 2024-12-26 14:17 | Discharge Summary ---
Discharge Summary Date of Service December 26, 2024 Principal Dx & Hospital Course #1 = Principal Diagnosis (1) Depression: Stable. Continue current medical management Plan Shahnaz Hartman Is a 39-year-old female with history of depression presenting with episode of chest pain as well as symptomatic hypotension. #Hypotension Reports improvement in symptoms after being started on Midodrine. Continue Midodrine 7.5mg TID on discharge Follow BP closely at home Zohaib hose daily, remove to sleep at night Recommend taking 1-2 minutes w/ positional changes to wait for BP to stabilize p rior to movement. - Discussed w/ patient. Advised 1-2 week follow up w/ PCP for further workup/management. #Chest pain Resolved. No Acute EKG changes troponin negative Echocardiogram normal. Discharged home 12/26. Admission HPI Per Admitting Provider Shahnaz Hartman Is a 39-year-old female with history of depression presenting with episode of chest pain as well as symptomatic hypotension. Patient has been dealing with drops in her blood pressure since November of this year. She has been following with her PCP for this issue. She was previously on spironolactone which has since been discontinued. Patient monitors her blood pressure at home and ranges from upper 70s to 110s systolic. She has had several episodes where she drops her pressures to 70 over 40 mg acutely dizzy. Today she experienced an episode of substernal chest tightness with diaphoresis, lightheadedness, near syncope. This lasted several minutes and resolved on its own. Discharge Exam Constitutional WD/WN, vitals as above Eyes PERRL, conjunctivae normal, anicteric sclerae Respiratory breathing unlabored Cardiovascular well perfused Psychiatric A+Ox3, euthymic affect Discharge Plan Discharge Items Patient Disposition: Home - Self-Care Reason For Visit: HYPOTENSION, CHEST PAIN Discharge Diagnosis: Hypotension Activity: Resume your previous activity Non-emergency contact: Primary Care Provider Call non-emergency contact if: you have any medication questions and your symptoms worsen Follow-up/Referrals: Maria Isabel Fu DO [Primary Care Provider] - 01/06/25 8:20 am Diet: Regular Addtl Attending Provider Instructions: Ms. Hartman, You were recently hospitalized for chest pain and dizziness. You were found to have low blood pressure. Your cardiac workup while in the hospital was negative and you were started on a medication to help your blood pressure. Please see recommendations below regarding your discharge. 1. Please take Midodrine 7.5mg three times daily. 2. Please record your blood pressure readings at home and monitor your symptoms. 3. Please wear compression stockings daily and take them off to sleep at night. 4. Please follow up with your PCP within 1-2 weeks of discharge for further recommendations. If you develop any recurrent chest pain, dizziness, fainting, shortness of breath please report back to the ER for further care. Sincerely, Anaya Jimenez PA-C Pending Studies at Discharge: No Stand-Alone Forms: My [facility] [employer], Smoking Cessation Medications and DC Order Prescriptions: New midodrine 2.5 mg Tablet 7.5 mg PO TID@0800,1200,1700 Qty: 90 0RF Continued fluoxetine 10 mg capsule 10 mg PO DAILY Qty: 90 2RF clindamycin phosphate 1 % gel 1 applic topical DAILY PRN (Reason: acne) Qty: 60 3RF multivitamin [Daily Multi-Vitamin] Tablet 1 tab PO DAILY clobetasol 0.05 % cream 1 applic topical .COMPLEX Qty: 30 4RF Rx Instructions: 1 applic topically Use daily x 2 weeks, then 2-3 times per week thereafter.; Apply thin layer to affected area. Discharge Orders: Discharge Order (Routine); Ordered 12/26/24 Ordered By: Anaya Jimenez Admission Data Admit Date/Time: 12/25/24 00:59 Attending Provider: Darien Dorsey Admit Provider: Marlene Benítez Primary Care Provider: Maria Isabel Fu Other Providers: Marlene Benítez Other Interventions: Discharge Summary Assessment (RN) Last Done: 12/26/24 14:27 Hospital Stay Data Consultations 12/25/24 00:28 ED Decision to Admit Stat Pending Results Patient Have Any Pending Studies at Discharge: No Discharge Instructions Given to Patient (Per Discharging Provider) Ms. Hartman, You were recently hospitalized for chest pain and dizziness. You were found to have low blood pressure. Your cardiac workup while in the hospital was negative and you were started on a medication to help your blood pressure. Please see recommendations below regarding your discharge. 1. Please take Midodrine 7.5mg three times daily. 2. Please record your blood pressure readings at home and monitor your symptoms. 3. Please wear compression stockings daily and take them off to sleep at night. 4. Please follow up with your PCP within 1-2 weeks of discharge for further recommendations. If you develop any recurrent chest pain, dizziness, fainting, shortness of breath please report back to the ER for further care. Sincerely, Anaya Jimenez PA-C Total Time Total Time Spent Total Time Spent (In Minutes): 40 Total Time Includes: Examination of the Patient, Discharge Planning and Medication Reconciliation Coding Level of Care Code 61599 INP/OBS DISCH >30 MIN Diagnoses Depression F32.A
[2024-12-26 14:27] VITALS: BP 98/65
[2024-12-26 14:48] VITALS: PULSE 78
== END 2024-12-26 15:26 | disposition home or self-care (01) ==
LOC: ED 21:38 → EDINP 21:38 → SUATTDRO 12-25 00:59 → 2N 12-25 02:18